=== PATIENT | female | born 1990 | race American Indian/Alaskan Native ===

== ENCOUNTER 2021-12-12 02:19 | Emergency (ER) | payer SELFPAY ==
[2021-12-12 02:23] VITALS: BP 117/45
== END 2021-12-12 07:00 | disposition left against medical advice (07) ==
LOC: ED 02:19
DX: K08.89 Other specified disorders of teeth and supporting structures (principal); Z53.21 Procedure and treatment not carried out due to patient leaving prior to being seen by health care provider